=== PATIENT | female | born 1975 | race African-American/Black ===

== ENCOUNTER 2024-07-05 11:54 | Emergency (ER) | payer MEDICAID ==
[~2024-07-05] VITALS: Ht 154.9 cm; Wt 50.0 kg
[2024-07-05 11:56] VITALS: O2SAT 100
[2024-07-05 12:04] VITALS: TEMP 98.7; O2SAT 100
[2024-07-05] MEDS ORDERED: IBUP-2029 MT (12:29)
[2024-07-05] MEDS ORDERED: CYCL5TAB3 MT (12:29)
[2024-07-05 12:54] VITALS: BP 106/63; PULSE 78; RESP 18
[2024-07-05] MEDS: KETOROLAC 30MG/ML VIAL IM ONE (12:54)
== END 2024-07-05 14:58 | disposition home or self-care (01) ==
LOC: ER 11:54
DX: M54.50 Low back pain, unspecified (principal)
CPT/HCPCS: 99283; 81025; 72100; 96372; J1885